=== PATIENT | male | born 1970 | race Caucasian/White ===

== ENCOUNTER 2017-06-02 01:09 | Emergency (ER) | payer OTHER ==
[~2017-06-02] VITALS: Ht 175.3 cm; Wt 86.3 kg
[~2017-06-02 01:09] MED LIST: APRISO0.375 GM PO; FLOMAX0.4 MG PO; LISINOPRIL20 MG PO; PERCOCET 5/31 TABLET PO; ZOFRAN ODT4 MG PO
[2017-06-02] MEDS ORDERED: NAPROSYN500 MG PO (04:26)
[2017-06-02 05:05] VITALS: BP 129/87
== END 2017-06-02 05:06 | disposition home or self-care (01) ==
LOC: EME 01:09
DX: S16.1XXA Strain of muscle, fascia and tendon at neck level, initial encounter (principal); V49.9XXA Car occupant (driver) (passenger) injured in unspecified traffic accident, initial encounter; Y92.410 Unspecified street and highway as the place of occurrence of the external cause; I10 Essential (primary) hypertension
CPT/HCPCS: 70450; 72125; 73030; 73110; 99281; 99284